=== PATIENT | male | born 1980 | race Asian ===

== ENCOUNTER → 2024-04-21 | Outpatient (CLI) | payer OTHER, SELFPAY ==
--- NOTE | 2024-04-21 13:00 | RAD_ITS ---
STUDY: X-RAY CHEST REASON FOR EXAM: Male, 43 years old. 10 day history of cough. TECHNIQUE: PA and lateral views of the chest. COMPARISON: None. FINDINGS: The lungs are clear and expanded. There is no demonstrated pleural abnormality. Normal size heart. Normal mediastinum and renzo. Normal visualized pulmonary arteries. Normal visualized aortic arch and descending thoracic aorta. Normal visualized thoracic spine. Normal visualized ribs, clavicles, and shoulders. There is no demonstrated abnormality of the visualized soft tissue structures of the upper abdomen. RAD/Chest PA and Lateral IMPRESSION: Normal x-ray examination of the chest. Electronically Signed: Ezequiel Faria MD at 14:46 EDT ,
== END | disposition home or self-care (01) ==
LOC: MTRAD 12:59
PROVIDERS: PCP Family Medicine; Referring Provider Family Medicine; Visit Provider Family Medicine
DX: R05.8 Other specified cough (principal)
CPT/HCPCS: 71046

== ENCOUNTER 2024-07-26 18:47 | Inpatient (IN) | payer OTHER, SELFPAY ==
[2024-07-26 18:47] VITALS: BP 156/95; PULSE 100; RESP 16; TEMP 36.9; O2SAT 95
--- NOTE | 2024-07-26 19:03 | CT_ITS ---
We are attempting to reach an attending provider to discuss findings. An addendum with communication details will be sent when the communication is complete. EXAM: CT ABDOMEN AND PELVIS WITH INTRAVENOUS CONTRAST CLINICAL INDICATION: abdominal pain -- TECHNIQUE: Helically acquired images were obtained of the abdomen and pelvis with intravenous contrast. This CT exam was performed using one or more of the following dose reduction techniques: automated exposure control, adjustment of the mA and/or kV according to patient size, and/or use of iterative reconstruction technique. CONTRAST: Oral and amp;amp; IV Gastrografin and amp;amp; 100mL Isovue-300 COMPARISON: No relevant prior studies available. FINDINGS: LOWER THORAX: There is minimal atelectasis in the lung bases. No cardiomegaly. No significant pericardial effusion. ABDOMEN: LIVER: There are low-density masses in the liver the largest measures 4.6 x 4.2 x 5.5 cm suspicious for metastatic disease. GALLBLADDER AND BILE DUCTS: Unremarkable. No calcified gallstones. No gallbladder distention or wall edema. No intra- or extrahepatic biliary ductal dilation. PANCREAS: Unremarkable. No focal cystic or solid mass. SPLEEN: There is dense fluid surrounding the spleen possibly representing hemorrhage. There is no obvious splenic laceration identified. Delayed images show normal tracer contrast from both kidneys. ADRENALS: Unremarkable. No nodules. KIDNEYS AND URETERS: Unremarkable. Normal renal size and position. No hydronephrosis. STOMACH AND BOWEL: Unremarkable. No stomach or bowel distention. No focal inflammatory change. PELVIS: APPENDIX: No evidence of acute appendicitis. BLADDER: Unremarkable. REPRODUCTIVE: Unremarkable as visualized. No mass. ABDOMEN and PELVIS: INTRAPERITONEAL SPACE: Unremarkable. No ascites or other fluid collection. No free air. BONES/JOINTS: Unremarkable. No suspicious lytic or blastic abnormality. SOFT TISSUES: Unremarkable. No discrete abdominal or pelvic wall hernia. VASCULATURE: Unremarkable. Abdominal aorta is non-dilated. LYMPH NODES: Unremarkable. No enlarged lymph nodes. CT/Abdomen/Pelvis WITH Contrast IMPRESSION: 1. Low-density mass in the liver suspicious for metastatic disease or possibly primary hepatic malignancy. 2. Hyperdense fluid surrounding the spleen possibly representing hemorrhage. There is no evidence of splenic laceration.. Electronically Signed: Linwood Montemayor MD at 21:47 EST ,
--- NOTE | 2024-07-26 19:04 | ED.VIS.GI ---
HPI HPI - GI History of Present Illness Chief Complaint: Abd Pain Detail of Chief Complaint: Abdominal pain Informant: patient Narrative Narrative: Patient presents to the emergency department complaint of abdominal pain that started around 5 PM 3 days ago. Patient has had continuous pain describes as right upper abdomen that is worse with movement and breathing. He said no nausea or vomiting. He denies fever. He tells me he can eat normally. Denies any blood in his stool or black tarry stool. He has never had pain like this before. He said no prior abdominal surgeries. He denies any chest pain. [facility] Medical History (Updated 07/27/24 @ 00:[address] Melissa Heath, DO) Hypertension Allergy/AdvReac Type Severity Reaction Status Date / Time No Known Allergies Allergy Verified 07/26/24 20:08 Social History Smoking Status: Unknown if ever smoked ROS ROS ED Review of Systems ROS Unobtainable: other Constitutional Constitutional ED: Reports lethargy; Denies chills, fever(s), sweats or weight loss Eyes Eyes: Denies blurry vision, change in vision or diplopia ENT ENT ED: Denies rhinorrhea or sore throat Cardiovascular Cardiovascular: Denies chest pain, orthopnea or racing heartbeat Respiratory/Chest Respiratory/Chest: Denies cough, dyspnea, dyspnea on exertion, orthopnea or sputum Gastrointestinal Gastrointestinal: Reports abdominal pain; Denies diarrhea, nausea or vomiting Genitourinary Genitourinary ED: Denies dysuria, hematuria or urinary frequency Musculoskeletal Musculoskeletal: Denies arthralgias, back pain, myalgias or neck pain Integumentary Denies abscess, Abrasions or rash Neurologic Neurologic: Denies headache(s) or weakness Psychiatric Psychiatric: Denies anxiety, depression or suicidal thoughts Endocrine Endocrinology: Denies polydipsia, polyphagia or polyuria Hematologic/Lymphatic Hematologic/Lymphatic: Denies easy bleeding, easy bruising or lymphadenopathy Allergic/Immunologic Allergic/Immunologic ED: Denies mouth swelling, tongue swelling or urticaria EXAM Physical Exam Const Vital Signs: 07/26/24 18:47 07/26/24 20:47 07/26/24 22:00 Temperature 98.5 F Temperature Source Temporal Pulse Rate 100 94 92 Respiratory Rate 16 16 16 Blood Pressure 156/95 H 188/100 H 162/96 H Blood Pressure Mean 115 129 118 Pulse Ox 95 98 96 Oxygen Delivery Method Room Air Room Air Room Air Positive well nourished and well developed General Appearance ED: well developed and NAD HEENT Reports TM's clear and moist mucous membranes normocephalic and atraumatic; Negative for trauma or tenderness Tympanic Membrane ED: Yes TM's clear Eyes PERRL and EOMs intact bilaterally General Eye ED: Negative for pale conjunctiva or scleral icterus Neck no lymphadenopathy, supple and no JVD General: Negative for tenderness Chest Wall inspection of chest normal and palpation of chest normal Chest: Negative for tenderness Resp normal respiratory effort and clear to auscultation bilaterally Effort and Inspection: Negative for respiratory distress or pain with movement Auscultation: Negative for rhonchi, wheezes or diminished lung sounds Cardio regular rate, regular rhythm, S1 normal heart sound, S2 normal heart sound and no murmurs Peripheral Pulses: pulses 2+ throughout GI normal to inspection, nondistended, normoactive bowel sounds, soft to palpation, non-distended and no masses GI Narrative: Tenderness palpation over the right upper quadrant with some guarding. He also has tenderness palpation over right lower quadrant and a positive Rovsing's on the left. No masses palpated. Back/Spine no CVA tenderness and no thoracic nor lumbar tenderness Extremity normal to inspection General Extremety ED: Negative for edema General Extremity: Negative for edema Neuro oriented x3, CN's II-XII intact bilaterally, no sensory deficits noted and gait normal Sensorium / Orientation: awake, alert, oriented to person, oriented to place and oriented to time Motor Exam: strength 5/5 throughout and strength abnormal Psych mental status grossly normal Skin no rashes or lesions noted and no wounds MDM MDM MDM Narrative Medical decision making narrative: Patient with abdominal pain for 4 days right upper quadrant worse with movement. Food does not affect the pain. IV line established. CBC with differential obtained showing a 5.5 with hemoglobin 13.2 and platelet count of 217. Chemistries unremarkable. LFTs normal. Lactate normal at 1.0. Urinalysis normal. Lipase normal at 50. CT scan of the abdomen and pelvis shows a large liver mass and dense fluid around the spleen which could possibly be hemorrhage. Clinically looks well. Discussed case with our general surgeon who recommended transfer to tertiary care where they would have hepatology. We attempted transfer to multiple hospitals in the area including [facility] however there are no beds available. We contacted [facility] and they will not take him as he has [place] [employer] insurance. We contacted [facility] however they do not have hepatology. Contacted [facility] and had not heard back. Care of patient will be turned over to evening physician awaiting transfer to tertiary care center for definitive care. Patient hemodynamically stable. Lab Data Attestation: I reviewed the patient's lab results. Labs: Laboratory Results - last 24 hr 07/26/24 07/26/24 07/26/24 19:00 19:50 20:55 WBC 5.5 RBC 4.69 Hgb 13.2 Hct 40.3 MCV 85.9 MCH 28.1 MCHC 32.8 RDW Std Deviation 40.2 RDW Coeff of Viviana 13.0 Plt Count 217 MPV 10.0 Immature Gran % (Auto) 0.400 Neut % (Auto) 57.5 Lymph % (Auto) 29.3 [place] % (Auto) 10.5 H Eos % (Auto) 1.6 Baso % (Auto) 0.7 Absolute Neuts (auto) 3.2 Absolute Lymphs (auto) 1.61 Nucleated RBC % 0 Sodium 140 Potassium 3.3 L Chloride 105 Carbon Dioxide 31.0 Anion Gap 5 BUN 14 Creatinine 0.99 Est GFR (MDRD) Af Amer 105 Est GFR (MDRD) Non-Af 87 BUN/Creatinine Ratio 14.1 Glucose 108 H Lactic Acid 1.0 Calcium 8.9 Total Bilirubin 1.10 H AST 20 ALT 21 Alkaline Phosphatase 63 Total Protein 8.1 Albumin 3.7 Globulin 4.4 H Albumin/Globulin Ratio 0.8 L Lipase 50 Urine Color Straw Urine Clarity Clear Urine pH 7.0 Ur Specific [place] 1.010 Urine Protein Negative Urine Glucose (UA) Normal Urine Ketones Negative Urine Occult Blood Negative Urine Nitrite Negative Urine Bilirubin Negative Urine Urobilinogen Normal Ur Leukocyte Esterase Negative Urine RBC 0 SEEN Urine WBC 0 SEEN Ur Squamous Epith Cells 0 SEEN Urine Bacteria 0 SEEN Urine Mucus 0 SEEN Radiography Diagnostic Testing: Clinical Impression(s) from Imaging Studies Abdomen/Pelvis CT 07/26/24 19:03 IMPRESSION: 1. Low-density mass in the liver suspicious for metastatic disease or possibly primary hepatic malignancy. 2. Hyperdense fluid surrounding the spleen possibly representing hemorrhage. There is no evidence of splenic laceration.. Electronically Signed: Linwood Montemayor MD at 21:47 EST , ADDENDUM: 07/26/242202 IMPRESSION: 1. Low-density mass in the liver suspicious for metastatic disease or possibly primary hepatic malignancy. 2. Hyperdense fluid surrounding the spleen possibly representing hemorrhage. There is no evidence of splenic laceration.. N.B. : The above Results were Read Back by Linwood Montemayor MD to Melissa Heath DO, and understanding confirmed on 07/26/2024 21:57:03 (ET). Electronically Signed: Linwood Montemayor MD at 21:47 EST , Discharge Plan Triage Chief Complaint: Abd Pain ED Provider: Melissa Heath Dx/Rx/DC Orders Clinical Impression: Liver mass, Abdominal pain, Hypertension Primary Care Provider: Ana Farias Referrals: Ana Farias MD [Primary Care Provider] - Print Language: Mohawk Disposition Disposition: DC/Tx to Another Type of HCF
[2024-07-26 19:34] LABS: Absolute Lymphocyte Count 1.61 X10^3/uL (0.83-4.51); Absolute Neutrophil Count 3.2 X10^3/uL (2.0-7.7); Basophil# 0.04 X10^3/uL; Basophil% 0.7 % (0-1); Eosinophil# 0.09 X10^3/uL; Eosinophils% 1.6 % (0-5); Hematocrit 40.3 % (40-54); Hemoglobin 13.2 g/dL (13.0-16.5); Lymphocyte # 1.61 X10^3/ul (0.83-4.51); Lymphocyte % 29.3 % (19-41); Mean Corp Hgb Conc 32.8 g/dL (32-36); Mean Corpuscular Hgb 28.1 pg (27.0-32.0); Mean Corpuscular Volume 85.9 fL (80-94); Monocyte# 0.58 X10^3/uL; Monocyte% 10.5 % (0-10); NRBC Flagged by Analyzer 0 % (0-5); Neutrophil # 3.16 X10^3/uL (2.7-7.7); Neutrophil % 57.5 % (47-70); Platelet Count 217 K/mm3 (150-450); RBC Distribution Width SD 40.2 fl (35.1-43.9); Red Blood Count 4.69 M/mm3 (4.6-6.2); White Blood Count 5.5 K/mm3 (4.4-11.0)
[2024-07-26 19:40] LABS: ALB/GLOB Ratio 0.8 RATIO (0.9-2.4); AST(SGOT) 20 U/L (15-37); Alanine Aminotransfer ALT/SGPT 21 U/L (16-61); Albumin, Serum 3.7 g/dL (3.2-5.0); Alkaline Phosphatase 63 U/L (45-117); Anion Gap 5 (5-15); BUN 14 mg/dL (7-18); BUN/Creat Ratio 14.1 RATIO (10-20); Calcium,Total 8.9 mg/dL (8.5-10.1); Chloride 105 mmol/L (98-107); Creatinine, Serum 0.99 mg/dL (0.70-1.30); EST Glomerular Filtration Rate 87 mL/min (>60); Est Glom Filt Rate - Afr Amer 105 mL/min (>60); Globulin 4.4 g/dL (2.2-4.2); Glucose 108 mg/dL (74-106); Lipase 50 U/L (13-75); Potassium 3.3 mmol/L (3.5-5.1); Protein, Total 8.1 g/dL (6.4-8.2); Sodium Level 140 mmol/L (136-145)
[2024-07-26] MEDS: 0.9% Normal Saline (1000mL) 1,000 ML 999 ML IV (19:54)
[2024-07-26 20:02] LABS: Bacteria 0 SEEN /hpf (None Seen); Mucous, Urine 0 SEEN /hpf (<or=2+); Red Blood Cells-Urine 0 SEEN /hpf (0-5); Squamous Epithelial Cells - UA 0 SEEN /hpf (0-5); White Blood Cells 0 SEEN /hpf (0-5)
[2024-07-26 20:03] LABS: Color, Urine Straw (Yellow); Glucose, Dipstick Normal (Normal); Ketone-Dipstick Negative (Negative); Leukocyte Esterase-Dipstick Negative /ul (Negative); Nitrite-Dipstick Negative (Negative); Occult Blood-Urine Negative /ul (Negative); Protein-Dipstick Negative (Negative); Urine Bilirubin Dipstick Negative (Negative); Urine Clarity Clear (Clear); Urine Urobilinogen Normal (Normal)
[2024-07-26 20:47] VITALS: BP 188/100; PULSE 94; RESP 16; O2SAT 98
[2024-07-26 22:00] VITALS: BP 162/96; PULSE 92; RESP 16; O2SAT 96
--- NOTE | 2024-07-26 22:20 | RAD_ITS ---
EXAM: XR CHEST, 1 VIEW CLINICAL INDICATION: upper abdomen pain TECHNIQUE: Frontal view of the chest. COMPARISON: 04/21/2024 FINDINGS: LUNGS AND PLEURAL SPACES: Unremarkable. No consolidation or edema. No pneumothorax. No effusion. HEART: Unremarkable. Cardiac silhouette not enlarged. MEDIASTINUM: Central airways and mediastinal contour are unremarkable. BONES/JOINTS: Unremarkable. No acute fracture. SOFT TISSUES: Unremarkable. RAD/Chest 1 View (Portable) IMPRESSION: No radiographic evidence of acute cardiopulmonary disease. Electronically Signed: Linwood Montemayor MD at 22:51 EST ,
[2024-07-26] MEDS: Ondansetron 4 MG/2 ML Vial IV (22:35)
[2024-07-26] MEDS: HYDROmorphone 1 MG/ML Syringe IV (22:38)
[2024-07-26 23:52] VITALS: BP 187/99; PULSE 77; RESP 11; O2SAT 96
[2024-07-26 23:54] VITALS: BMI 32.1
[2024-07-27] VITALS (11 sets, daily range): BP systolic 136–175; BP diastolic 84–99; PULSE 79–88; RESP 16–18; TEMP 36.5–36.9; O2SAT 96–99; BMI 32.1
--- NOTE | 2024-07-27 13:34 | HP.PCM.HOS_ITS ---
HPI - General General Date of Admission: 07/27/24 Date of Service: 07/27/24 Chief Complaint: Abdominal pain HPI Narrative ANNELIESE LUTZ, is a 43 M with past medical history significant for hypertension currently not taking any medication who presented with abdominal pain. Patient symptoms started 3 days prior to his admission. Pain was located in the right upper quadrant. No associated pain with any nausea no vomiting. Denied any diarrhea. In view of the persistent nature of his symptoms presented to the emergency department. Imaging studies obtained did show Low-density mass in the liver suspicious for metastatic disease or possibly primary hepatic malignancy. Hyperdense fluid surrounding the spleen possibly representing hemorrhage. There is no evidence of splenic laceration.. Based on the finding arrangements were made for patient to be transferred to [facility] for subsequent evaluation and treatment [facility] Medical History Hypertension Home Medications ?Medication ?Instructions ?Recorded ?Last Taken ?Type NK 07/27/24 Unknown History Allergy/AdvReac Type Severity Reaction Status Date / Time No Known Allergies Allergy Verified 07/26/24 20:08 Social History Smoking Status: Unknown if ever smoked ROS ROS Narrative GENERAL: denies fever, chills, night sweats, weight loss, anorexia HEENT: denies headache, sinus congestion, or drainage, dysphagia RESPIRATORY: denies cough, sputum production, shortness of breath, CARDIAC: denies chest pain, palpitations, orthopnea, PND GASTROINTESTINAL: abdominal pain, denies nausea, vomiting, melena, GENITOURINARY: denies dysuria, urgency, frequency, heamaturia EXTREMITY: denies swelling MUSCULOSKELETAL: denies current joint pain or tenderness NEUROLOGIC: denies focal numbness, weakness, tingling HEMATOLOGIC: denies easy bruising and/or hemorrhage INTEGUMENT: denies rashes PSYCHIATRIC: denies suicidal or homicidal ideation Vital Signs Vital Signs Vital Signs: 07/26/24 18:47 07/26/24 20:47 07/26/24 22:00 Temperature 98.5 F Temperature Source Temporal Pulse Rate 100 94 92 Respiratory Rate 16 16 16 Blood Pressure 156/95 H 188/100 H 162/96 H Blood Pressure Mean 115 129 118 Pulse Ox 95 98 96 Oxygen Delivery Method Room Air Room Air Room Air 07/26/24 23:52 07/27/24 00:00 07/27/24 02:00 Temperature Temperature Source Pulse Rate 77 88 Respiratory Rate 11 L 18 Blood Pressure 187/99 H 160/94 H 175/97 H Blood Pressure Mean 128 116 123 Pulse Ox 96 98 97 Oxygen Delivery Method Room Air Room Air Room Air 07/27/24 04:00 07/27/24 06:20 07/27/24 08:00 Temperature Temperature Source Pulse Rate 80 79 Respiratory Rate 16 16 16 Blood Pressure 148/84 H 158/93 H 154/95 H Blood Pressure Mean 105 114 114 Pulse Ox 96 96 99 Oxygen Delivery Method Room Air Room Air Room Air 07/27/24 10:00 07/27/24 13:07 Temperature 98.1 F Temperature Source Oral Pulse Rate 84 88 Respiratory Rate 18 16 Blood Pressure 165/86 H 150/90 H Blood Pressure Mean 112 110 Pulse Ox 99 97 Oxygen Delivery Method Room Air Weight Weight: 95.9 kg Body Mass Index (BMI) 32.1 Physical Exam Narrative GENERAL: cooperative HEENT: Atraumatic; normocephalic EYES; Anicteric, Normal Conjunctiva NECK; supple, normal thyroid, RESPIRATORY: Diminished to auscultation CARDIOVASCULAR: Regular S1 S2, GI: soft, normoactive bowel sounds, : No Renal angle tenderness; EXTREMITIES: No edema, no clubbing, MUSCULOSKELETAL: no muscle wasting NEURO: Awake; no lateralizing signs. SKIN: No Rash PSYCH; Flat affect Results Lab / Micro Data 07/26/24 19:00 07/26/24 19:00 Labs: Laboratory Results - last 24 hr 07/26/24 19:00: WBC 5.5, RBC 4.69, Hgb 13.2, Hct 40.3, MCV 85.9, MCH 28.1, MCHC 32.8, RDW Std Deviation 40.2, RDW Coeff of Viviana 13.0, Plt Count 217, MPV 10.0, Immature Gran % (Auto) 0.400, Neut % (Auto) 57.5, Lymph % (Auto) 29.3, [place] % (Auto) 10.5 H, Eos % (Auto) 1.6, Baso % (Auto) 0.7, Absolute Neuts (auto) 3.2, Absolute Lymphs (auto) 1.61, Nucleated RBC % 0, Sodium 140, Potassium 3.3 L, Chloride 105, Carbon Dioxide 31.0, Anion Gap 5, BUN 14, Creatinine 0.99, Est GFR (MDRD) Af Amer 105, Est GFR (MDRD) Non-Af 87, BUN/Creatinine Ratio 14.1, Glucose 108 H, Calcium 8.9, Total Bilirubin 1.10 H, AST 20, ALT 21, Alkaline Phosphatase 63, Total Protein 8.1, Albumin 3.7, Globulin 4.4 H, Albumin/Globulin Ratio 0.8 L , Lipase 50 07/26/24 19:50: Urine Color Straw, Urine Clarity Clear, Urine pH 7.0, Ur Specific [place] 1.010, Urine Protein Negative, Urine Glucose (UA) Normal, Urine Ketones Negative, Urine Occult Blood Negative, Urine Nitrite Negative, Urine Bilirubin Negative, Urine Urobilinogen Normal, Ur Leukocyte Esterase Negative, Urine RBC 0 SEEN, Urine WBC 0 SEEN, Ur Squamous Epith Cells 0 SEEN, Urine Bacteria 0 SEEN, Urine Mucus 0 SEEN 07/26/24 20:55: Lactic Acid 1.0 Imaging Radiology Impression Abdomen/Pelvis CT 07/26/24 19:03 IMPRESSION: 1. Low-density mass in the liver suspicious for metastatic disease or possibly primary hepatic malignancy. 2. Hyperdense fluid surrounding the spleen possibly representing hemorrhage. There is no evidence of splenic laceration.. Electronically Signed: Linwood Montemayor MD at 21:47 EST , ADDENDUM: 07/26/24 2203 IMPRESSION: 1. Low-density mass in the liver suspicious for metastatic disease or possibly primary hepatic malignancy. 2. Hyperdense fluid surrounding the spleen possibly representing hemorrhage. There is no evidence of splenic laceration.. N.B. : The above Results were Read Back by Linwood Montemayor MD to Melissa Heath DO, and understanding confirmed on 07/26/2024 21:57:03 (ET). Electronically Signed: Linwood Montemayor MD at 21:47 EST , Chest X-Ray 07/26/24 22:20 IMPRESSION: No radiographic evidence of acute cardiopulmonary disease. Electronically Signed: Linwood Montemayor MD at 22:51 EST , Assessment & Plan Assessment/Plan (1) Abdominal pain: (2) Liver mass: (3) Hypertension: PLAN: Plan Patient is a 43-year-old gentleman who presented with abdominal pain 1. Abdominal pain - Imaging studies obtained did show Low-density mass in the liver suspicious for metastatic disease or possibly primary hepatic malignancy. Hyperdense fluid surrounding the spleen possibly representing hemorrhage. There is no evidence of splenic laceration.. Based on the finding arrangements were made for patient to be transferred to [facility] for subsequent evaluation and treatment. With patient having spent more than 18 hours in the emergency department decision was made to admit patient to [facility] pending transfer 2. Essential hypertension ? Patient has apparently not been compliant with his antihypertensive regimen 3. DVT prophylaxis ? Low risk moreover contraindicated in view of the splenic hemorrhage Charges/Coding Visit Charges Inpatient E&M: 65101 Init Hosp L2
[2024-07-27] MEDS: KCL 20MEQ in D5.45NS 20 MEQ/1,000 ML IV.SOLN. 100 MEQ IV (18:39)
[2024-07-27 20:06] LABS: Absolute Lymphocyte Count 1.78 X10^3/uL (0.83-4.51); Absolute Neutrophil Count 2.7 X10^3/uL (2.0-7.7); Basophil# 0.05 X10^3/uL; Basophil% 0.9 % (0-1); Eosinophil# 0.24 X10^3/uL; Eosinophils% 4.4 % (0-5); Hematocrit 35.9 % (40-54); Lymphocyte # 1.78 X10^3/ul (0.83-4.51); Lymphocyte % 32.5 % (19-41); Mean Corp Hgb Conc 33.4 g/dL (32-36); Mean Corpuscular Hgb 28.6 pg (27.0-32.0); Mean Corpuscular Volume 85.7 fL (80-94); Mean Platelet Vol. 9.9 fl (6.2-12.0); Monocyte% 12.8 % (0-10); NRBC Flagged by Analyzer 0 % (0-5); Neutrophil # 2.69 X10^3/uL (2.7-7.7); Platelet Count 221 K/mm3 (150-450); RBC Distribution Width CV 12.9 % (11.6-14.6); RBC Distribution Width SD 39.8 fl (35.1-43.9); Red Blood Count 4.19 M/mm3 (4.6-6.2); White Blood Count 5.5 K/mm3 (4.4-11.0)
[2024-07-27 20:20] LABS: ALB/GLOB Ratio 0.9 RATIO (0.9-2.4); AST(SGOT) 21 U/L (15-37); Alanine Aminotransfer ALT/SGPT 25 U/L (16-61); Albumin, Serum 3.3 g/dL (3.2-5.0); Alkaline Phosphatase 59 U/L (45-117); Anion Gap 5 (5-15); BUN 14 mg/dL (7-18); BUN/Creat Ratio 13.6 RATIO (10-20); Calcium,Total 8.7 mg/dL (8.5-10.1); Chloride 106 mmol/L (98-107); Creatinine, Serum 1.03 mg/dL (0.70-1.30); EST Glomerular Filtration Rate 83 mL/min (>60); Est Glom Filt Rate - Afr Amer 100 mL/min (>60); Estimated Creatinine Clearance 98.48 ml/min; Globulin 3.8 g/dL (2.2-4.2); Glucose 131 mg/dL (74-106); Magnesium 2.1 mg/dL (1.6-2.6); Phosphorus 3.2 mg/dL (2.5-4.9); Potassium 3.3 mmol/L (3.5-5.1); Protein, Total 7.1 g/dL (6.4-8.2); Sodium Level 140 mmol/L (136-145)
[2024-07-28 04:02] VITALS: BP 140/86; PULSE 85; RESP 16; TEMP 37; O2SAT 97
[2024-07-28] MEDS: KCL 20MEQ in D5.45NS 20 MEQ/1,000 ML IV.SOLN. 100 MEQ IV ×2 (04:13→15:13)
--- NOTE | 2024-07-28 05:29 | NURSING ---
Chrissy from [facility] called for update on pt; update given including set of recent vitals.
[2024-07-28 07:15] LABS: Absolute Lymphocyte Count 1.85 X10^3/uL (0.83-4.51); Absolute Neutrophil Count 2.2 X10^3/uL (2.0-7.7); Basophil# 0.05 X10^3/uL; Eosinophil# 0.29 X10^3/uL; Eosinophils% 5.9 % (0-5); Hematocrit 38.9 % (40-54); Hemoglobin 12.9 g/dL (13.0-16.5); Lymphocyte # 1.85 X10^3/ul (0.83-4.51); Lymphocyte % 37.4 % (19-41); Mean Corp Hgb Conc 33.2 g/dL (32-36); Mean Corpuscular Hgb 28.2 pg (27.0-32.0); Mean Corpuscular Volume 85.1 fL (80-94); Mean Platelet Vol. 9.6 fl (6.2-12.0); Monocyte# 0.53 X10^3/uL; Monocyte% 10.7 % (0-10); NRBC Flagged by Analyzer 0 % (0-5); Neutrophil # 2.21 X10^3/uL (2.7-7.7); Neutrophil % 44.8 % (47-70); Platelet Count 228 K/mm3 (150-450); RBC Distribution Width CV 12.8 % (11.6-14.6); RBC Distribution Width SD 39.2 fl (35.1-43.9); Red Blood Count 4.57 M/mm3 (4.6-6.2); White Blood Count 4.9 K/mm3 (4.4-11.0)
[2024-07-28 07:24] VITALS: O2SAT 96
--- NOTE | 2024-07-28 07:31 | PN.HOSP_ITS ---
Reason for Visit Reason for Visit: Diagnoses Essential (primary) hypertension (07/27/24) Unspecified abdominal pain (07/27/24) Hepatomegaly, not elsewhere classified (07/27/24) Subjective Subjective Admitted with abdominal pain found to have liver lesions as well as splenic hemorrhage awaiting transfer to a tertiary care center. Diagnostic data reviewed significant for hypokalemia which is being corrected per protocol Objective Data Objective Data Vital Signs: Vital Signs Temp Pulse Resp BP Pulse Ox O2 Del Method 98.6 F 85 16 140/86 H 97 Room Air 07/28/24 04:02 07/28/24 04:02 07/28/24 04:02 07/28/24 04:02 07/28/24 04:02 07/28/24 04:02 Oxygen Delivery Method Room Air Weight: 93.043 kg Body Mass Index (BMI) 32.1 Intake & Output: Intake and Output for Last 24 Hours 07/26/24 07/27/24 07/28/24 23:59 23:59 23:59 Intake Total 1000 / 1000 1955. / 1955. Balance 1000 / 1000 / Lab / Micro Data 07/28/24 06:43 07/28/24 06:43 Labs: Laboratory Results - last 24 hr 07/27/24 19:21: WBC 5.5, RBC 4.19 L, Hgb 12.0 L, Hct 35.9 L, MCV 85.7, MCH 28.6, MCHC 33.4, RDW Std Deviation 39.8, RDW Coeff of Viviana 12.9, Plt Count 221, MPV 9.9, Immature Gran % (Auto) 0.400, Neut % (Auto) 49.0, Lymph % (Auto) 32.5, [place] % (Auto) 12.8 H, Eos % (Auto) 4.4, Baso % (Auto) 0.9, Absolute Neuts (auto) 2.7, Absolute Lymphs (auto) 1.78, Nucleated RBC % 0, Sodium 140, Potassium 3.3 L, Chloride 106, Carbon Dioxide 30.0, Anion Gap 5, BUN 14, Creatinine 1.03, Estim Creat Clear Calc 98.48, Est GFR (MDRD) Af Amer 100, Est GFR (MDRD) Non-Af 83, BUN/Creatinine Ratio 13.6, Glucose 131 H, Calcium 8.7, Phosphorus 3.2, Magnesium 2.1, Total Bilirubin 1.40 H, AST 21, ALT 25, Alkaline Phosphatase 59, Total Protein 7.1, Albumin 3.3, Globulin 3.8, Albumin/Globulin Ratio 0.9 07/28/24 06:43: WBC 4.9, RBC 4.57 L, Hgb 12.9 L, Hct 38.9 L, MCV 85.1, MCH 28.2, MCHC 33.2, RDW Std Deviation 39.2, RDW Coeff of Viviana 12.8, Plt Count 228, MPV 9.6, Immature Gran % (Auto) 0.200, Neut % (Auto) 44.8 L, Lymph % (Auto) 37.4, M maria ines % (Auto) 10.7 H, Eos % (Auto) 5.9 H, Baso % (Auto) 1.0, Absolute Neuts (auto) 2.2, Absolute Lymphs (auto) 1.85, Nucleated RBC % 0 Physical Exam Narrative GENERAL: cooperative HEENT: Atraumatic; normocephalic EYES; Anicteric, Normal Conjunctiva NECK; supple, normal thyroid, RESPIRATORY: Diminished to auscultation CARDIOVASCULAR: Regular S1 S2, GI: soft, normoactive bowel sounds, : No Renal angle tenderness; EXTREMITIES: No edema, no clubbing, MUSCULOSKELETAL: no muscle wasting NEURO: Awake; no lateralizing signs. SKIN: No Rash PSYCH; Flat affect Assessment & Plan Assessment/Plan (1) Abdominal pain: (2) Liver mass: (3) Hypertension: PLAN: Plan Patient is a 43-year-old gentleman who presented with abdominal pain 1. Abdominal pain - Imaging studies obtained did show Low-density mass in the liver suspicious for metastatic disease or possibly primary hepatic malignancy. Hyperdense fluid surrounding the spleen possibly representing hemorrhage. There is no evidence of splenic laceration.. Based on the finding arrangements were made for patient to be transferred to [facility] for subsequent evaluation and treatment. With patient having spent more than 18 hours in the emergency department decision was made to admit patient to [facility] floor pending transfer 2. Essential hypertension ? Patient has apparently not been compliant with his antihypertensive regimen 3. Hypokalemia -Corrected per protocol 4. DVT prophylaxis ? Low risk moreover contraindicated in view of the splenic hemorrhage Time spent in the patient's overall evaluation,decision-making process, review of diagnostic data, adjustment of management, discussion with other providers, nursing nursing and ancillary staff involved in patient's care documentation, 36 Minutes Charges/Coding Visit Charges Inpatient E&M: 76954 Subs Hosp L2
[2024-07-28 07:38] LABS: Anion Gap 3 (5-15); BUN 11 mg/dL (7-18); BUN/Creat Ratio 12.4 RATIO (10-20); Calcium,Total 8.6 mg/dL (8.5-10.1); Chloride 108 mmol/L (98-107); Creatinine, Serum 0.89 mg/dL (0.70-1.30); EST Glomerular Filtration Rate 98 mL/min (>60); Est Glom Filt Rate - Afr Amer 119 mL/min (>60); Estimated Creatinine Clearance 113.97 ml/min; Glucose 117 mg/dL (74-106); Potassium 3.4 mmol/L (3.5-5.1); Sodium Level 140 mmol/L (136-145)
--- NOTE | 2024-07-28 08:16 | NURSING ---
I spoke to Shala at [facility] transfer line she stated the pt is accepted however they do not have a bed at this time.
[2024-07-28 08:31] VITALS: BP 163/98; PULSE 81; RESP 16; TEMP 36.6; O2SAT 98
--- NOTE | 2024-07-28 08:35 | NURSING ---
I spoke to [facility] transfer line and they stated the pt has been accepted however they do not have a bed at this time.
[2024-07-28] MEDS: Acetaminophen 325 MG Tablet 650 MG PO (08:43)
[2024-07-28] MEDS: Potassium Chloride Oral Tablet 20 MEQ PO ×2 (08:43→16:54)
[2024-07-28] MEDS: FLU VACC 2024-25(6MOS UP)/PF 45 MCG/0.5 ML SYRINGE IM (12:13)
[2024-07-28 16:52] VITALS: BP 154/99; PULSE 79; RESP 16; TEMP 36.9; O2SAT 98
[2024-07-28 20:49] VITALS: BP 148/88; PULSE 83; RESP 15; TEMP 36.8; O2SAT 97
[2024-07-28 22:00] VITALS: RESP 15
[2024-07-29 03:00] VITALS: BP 154/80; PULSE 85; RESP 15; TEMP 37; O2SAT 96
[2024-07-29 06:44] LABS: Absolute Lymphocyte Count 1.79 X10^3/uL (0.83-4.51); Absolute Neutrophil Count 3.3 X10^3/uL (2.0-7.7); Basophil# 0.05 X10^3/uL; Basophil% 0.8 % (0-1); Eosinophil# 0.35 X10^3/uL; Eosinophils% 5.7 % (0-5); Hematocrit 37.7 % (40-54); Hemoglobin 12.5 g/dL (13.0-16.5); Lymphocyte # 1.79 X10^3/ul (0.83-4.51); Lymphocyte % 29.2 % (19-41); Mean Corp Hgb Conc 33.2 g/dL (32-36); Mean Corpuscular Hgb 28.3 pg (27.0-32.0); Mean Corpuscular Volume 85.3 fL (80-94); Mean Platelet Vol. 9.6 fl (6.2-12.0); Monocyte# 0.58 X10^3/uL; Monocyte% 9.5 % (0-10); NRBC Flagged by Analyzer 0 % (0-5); Neutrophil # 3.34 X10^3/uL (2.7-7.7); Neutrophil % 54.5 % (47-70); Platelet Count 234 K/mm3 (150-450); RBC Distribution Width CV 12.7 % (11.6-14.6); RBC Distribution Width SD 39.3 fl (35.1-43.9); Red Blood Count 4.42 M/mm3 (4.6-6.2); White Blood Count 6.1 K/mm3 (4.4-11.0)
[2024-07-29 07:09] LABS: Anion Gap 6 (5-15); BUN 12 mg/dL (7-18); BUN/Creat Ratio 12.7 RATIO (10-20); Chloride 108 mmol/L (98-107); Creatinine, Serum 0.94 mg/dL (0.70-1.30); EST Glomerular Filtration Rate 92 mL/min (>60); Est Glom Filt Rate - Afr Amer 111 mL/min (>60); Estimated Creatinine Clearance 107.91 ml/min; Glucose 109 mg/dL (74-106); Potassium 3.3 mmol/L (3.5-5.1); Sodium Level 140 mmol/L (136-145)
[2024-07-29 09:53] VITALS: BP 163/99; PULSE 86; RESP 18; TEMP 37.1; O2SAT 97
[2024-07-29] MEDS: Potassium Chloride Oral Tablet 20 MEQ PO ×2 (09:57→17:32)
--- NOTE | 2024-07-29 13:33 | PCM.PN.HOSP ---
Reason for Visit Reason for Visit: Diagnoses Essential (primary) hypertension (07/27/24) Unspecified abdominal pain (07/27/24) Hepatomegaly, not elsewhere classified (07/27/24) Objective Data Objective Data Vital Signs: Vital Signs Temp Pulse Resp BP Pulse Ox O2 Del Method 98.7 F 86 18 163/99 H 97 Room Air 07/29/24 09:53 07/29/24 09:53 07/29/24 09:53 07/29/24 09:53 07/29/24 09:53 07/29/24 09:53 Oxygen Delivery Method Room Air Weight: 93.043 kg Body Mass Index (BMI) 32.1 Intake & Output: Intake and Output for Last 24 Hours 07/27/24 07/28/24 07/29/24 23:59 23:59 23:59 Intake Total 3906.67 / 3906.67 1000 / 1000 Balance 3906.67 / 3906.67 1000 / 1000 Lab / Micro Data 07/29/24 06:00 07/29/24 06:00 Labs: Laboratory Results - last 24 hr 07/29/24 06:00: WBC 6.1, RBC 4.42 L, Hgb 12.5 L, Hct 37.7 L, MCV 85.3, MCH 28.3, MCHC 33.2, RDW Std Deviation 39.3, RDW Coeff of Viviana 12.7, Plt Count 234, MPV 9.6, Immature Gran % (Auto) 0.300, Neut % (Auto) 54.5, Lymph % (Auto) 29.2, [place] % (Auto) 9.5, Eos % (Auto) 5.7 H, Baso % (Auto) 0.8, Absolute Neuts (auto) 3.3, Absolute Lymphs (auto) 1.79, Nucleated RBC % 0, Sodium 140, Potassium 3.3 L, Chloride 108 H, Carbon Dioxide 27.0, Anion Gap 6, BUN 12, Creatinine 0.94, Estim Creat Clear Calc 107.91, Est GFR (MDRD) Af Amer 111, Est GFR (MDRD) Non-Af 92, BUN/Creatinine Ratio 12.7, Glucose 109 H, Calcium 9.0
[2024-07-29 14:00] VITALS: BP 137/89; PULSE 88; RESP 18; TEMP 36.8; O2SAT 98
--- NOTE | 2024-07-29 18:07 | DCINST_ITS ---
Discharge Instructions Diet Discharge Diet: No restrictions DC O2, CPAP, BIPAP needs Additional Home O2 Discharge instructions: No Dressing / Incision Discharge Activity: No Restrictions Follow Up Care Test Results: Test results from this visit will be discussed in further detail at your follow- up appointment, if applicable. Discharge Plan Admission Admit Date/Time: 07/27/24 13:35 Primary Reason for Your Visit: abdominal pain Attending Provider: Den Mcfarland Primary Care Provider: Ana Farias Consulting Providers: Angel Salazar Discharge Orders/Prescriptions Prescriptions: No Action NK Referrals / Follow Up: Ana Farias MD [Primary Care Provider] - Disposition Disposition (needs filled in before D/C Order can be placed): Acute Care Hospital
--- NOTE | 2024-07-29 18:07 | PCM.DC.SUM ---
Providers Date of Admission: 07/27/24 Date of Discharge: 07/29/24 Primary Care Physician: Ana Farias MD Reason For Visit: SPLENIC HEMORRHAGE Diagnosis Discharge Diagnosis (1) Abdominal pain: Status: Acute Code(s): R10.9 - Unspecified abdominal pain (2) Liver mass: Status: Acute Code(s): R16.0 - Hepatomegaly, not elsewhere classified (3) Hypertension: Status: Chronic Code(s): I10 - Essential (primary) hypertension Medications at Discharge Home Medications NK 07/27/24 Hospital Course Operations None Procedures - (Chest x-ray, CT abdomen pelvis) Summary of Care Provided Minutes Spent on Discharge: 35 Hospital Course: Patient is a 43-year-old male who presented [facility] on 07/27/2024 with abdominal pain. Short hospital course here as noted below. Patient was transferred to [facility] on 07/29 for further management. 1. Abdominal pain with newly diagnosed liver masses and splenic hemorrhage ? CT abdomen pelvis on admit showed low-density masses in the liver with the largest measuring 4.6 x 4.2 x 5.5 cm suspicious for metastatic disease, as well as dense fluid surrounding the spleen possibly representing hemorrhage; notably no obvious splenic laceration was identified. Chest x-ray was unremarkable. LFTs with T. bili 1.40, otherwise normal. No other significant lab abnormalities. Given these findings, decision was made to transfer patient to [facility] for further management. Transferred on 07/29 in stable condition. 2. Hypokalemia ? Potassium 3.3 on admit. Mag and Phos normal. Repleted as needed. 3. Hypertension ? Has known history but not currently on any home antihypertensives. Blood pressure consistently running in the 140s to 150s during hospitalization. 4. Class I obesity ? BMI 32 on admit. Complicated hospital course, care and prognosis. Total clinical time spent by myself addressing the patient's medical issues, reviewing all the data, and collaborating with patient's care team: 35 minutes. Physical Exam Const alert, oriented x3 and no apparent distress General Appearance: cooperative and comfortable HEENT normocephalic, head/scalp atraumatic, hearing grossly normal bilaterally, nasal mucous membranes and turbinates normal and moist oral mucous membranes Eyes PERRL, EOMs intact bilaterally and conjunctivae normal Neck full ROM Chest inspection of chest normal Resp normal respiratory effort, normal air movement, no use of accessory muscles and clear to auscultation bilaterally Cardio regular rate, regular rhythm, no murmurs and peripheral pulses 2+ throughout GI normal to inspection, nondistended, normoactive bowel sounds, soft to palpation and non-distended GI Narrative: Abdomen mildly tender diffusely to palpation, otherwise soft and nondistended. Back/Spine normal ROM Extremity normal to inspection, full ROM and no pedal edema Skin no rashes or lesions noted Psych mental status grossly normal Weight / BMI Weight Weight: 93.043 kg Body Mass Index (BMI) 32.1 ABG / Lab / Microbiology Data 07/29/24 06:00 07/29/24 06:00 Laboratory: Laboratory Results - last 24 hr 07/29/24 06:00: WBC 6.1, RBC 4.42 L, Hgb 12.5 L, Hct 37.7 L, MCV 85.3, MCH 28.3, MCHC 33.2, RDW Std Deviation 39.3, RDW Coeff of Viviana 12.7, Plt Count 234, MPV 9.6, Immature Gran % (Auto) 0.300, Neut % (Auto) 54.5, Lymph % (Auto) 29.2, [place] % (Auto) 9.5, Eos % (Auto) 5.7 H, Baso % (Auto) 0.8, Absolute Neuts (auto) 3.3, Absolute Lymphs (auto) 1.79, Nucleated RBC % 0, Sodium 140, Potassium 3.3 L, Chloride 108 H, Carbon Dioxide 27.0, Anion Gap 6, BUN 12, Creatinine 0.94, Estim Creat Clear Calc 107.91, Est GFR (MDRD) Af Amer 111, Est GFR (MDRD) Non-Af 92, BUN/Creatinine Ratio 12.7, Glucose 109 H, Calcium 9.0 D/C Instructions DC O2, CPAP, BIPAP Needs Additional Home O2 Discharge instructions: No DC home with Oxygen: No Meaningful Use Info Meaningful Use Meaningful Use Diagnoses (Choose all that apply): None applicable Ischemic Stroke Statin Dosing Therapy Reference: STATIN DOSE THERAPY REFERENCE: * Patients > 75 years receive moderate or high dose statin therapy. * Patients 75 years or YOUNGER should receive HIGH intensity statin dose unless contraindicated. You will be required to document reason for non-treatment if statin daily dose does not meet guidelines. HIGH DOSE STATIN THERAPY DAILY Atorvastatin > than or = to 40 mg Rosuvastatin > than or = to 20 mg Amlodipine + Atorvastatin > than or = to 2.5/40 mg Ezetimibe + Simvastatin 10/80 mg Simvastatin 80mg Discharge Plan Admission Admit Date/Time: 07/27/24 13:35 Primary Reason for Your Visit: abdominal pain Attending Provider: Den Mcfarland Primary Care Provider: Ana Farias Consulting Providers: Angel Salazar Discharge Orders/Prescriptions Prescriptions: No Action NK Referrals / Follow Up: Ana Farias MD [Primary Care Provider] - Disposition Disposition (needs filled in before D/C Order can be placed): Acute Care Hospital Charges/Coding Visit Charges Inpatient E&M: 68094 Disch Hosp >30min
[2024-07-29 20:29] VITALS: BP 151/95; PULSE 89; RESP 16; TEMP 36.4; O2SAT 96
== END 2024-07-29 22:47 | disposition short-term general hospital (02) | DRG 437 ==
LOC: ED 07-27 01:02 → PCU 07-27 17:02
PROVIDERS: Admitting Provider Internal Medicine; Emergency Provider Emergency Medicine; PCP Family Medicine; Referring Provider Emergency Medicine; Visit Provider Hospitalist
DX: C22.9 Malignant neoplasm of liver, not specified as primary or secondary (principal); D73.5 Infarction of spleen; I10 Essential (primary) hypertension; Z68.32 Body mass index [BMI] 32.0-32.9, adult; E87.6 Hypokalemia; R16.0 Hepatomegaly, not elsewhere classified; E66.811 Obesity, class 1; Z23 Encounter for immunization
CPT/HCPCS: 36415; 71045; 74177; 80048; 80053; 81001; 83605; 83690; 83735; 84100; 85025; 90656; 99284; J7030; Q9967; A4216; J2405

== ENCOUNTER → 2024-08-11 | Outpatient (CLI) | payer OTHER, SELFPAY ==
[2024-08-11 15:53] LABS: ALB/GLOB Ratio 0.8 RATIO (0.9-2.4); AST(SGOT) 26 U/L (15-37); Alanine Aminotransfer ALT/SGPT 33 U/L (16-61); Albumin, Serum 3.8 g/dL (3.2-5.0); Alkaline Phosphatase 83 U/L (45-117); Anion Gap 6 (5-15); BUN 16 mg/dL (7-18); BUN/Creat Ratio 16.6 RATIO (10-20); Chloride 102 mmol/L (98-107); Creatinine, Serum 0.96 mg/dL (0.70-1.30); EST Glomerular Filtration Rate 89 mL/min (>60); Est Glom Filt Rate - Afr Amer 108 mL/min (>60); Globulin 4.5 g/dL (2.2-4.2); Glucose 96 mg/dL (74-106); Potassium 3.5 mmol/L (3.5-5.1); Protein, Total 8.3 g/dL (6.4-8.2); Sodium Level 138 mmol/L (136-145)
[2024-08-13 08:07] LABS: GGTP 32 IU/L (0-65)
== END | disposition home or self-care (01) ==
LOC: MTLAB 12:56
PROVIDERS: PCP Family Medicine; Referring Provider Family Medicine; Visit Provider Family Medicine
DX: C22.0 Liver cell carcinoma (principal); E87.6 Hypokalemia
CPT/HCPCS: 36415; 80053; 82105; 82977

== ENCOUNTER 2025-06-03 14:52 | Emergency (ER) | payer OTHER, SELFPAY ==
[2025-06-03 14:53] VITALS: BP 130/88; PULSE 100; RESP 16; TEMP 36.6; O2SAT 99; BMI 27.8
--- NOTE | 2025-06-03 15:21 | EDS_ITS ---
HPI History of Present Illness Chief Complaint: Dental Informant: patient Onset/Context/Timing Onset: Days (3) Context: Gradual Onset Timing: Continuous Quality: Aching Location: Left lower molars Worsened by: Opening his jaw, drinking, eating Associated Symptoms Assocated Symptom - Dental: jaw swelling and face swelling; Negative for fever, cold sensitivity or hot sensitivity Narrative Narrative: Patient presents with pain in his left jaw that has been getting worse over the past 3 days. Patient saw his primary care physician who prescribed clindamycin. Patient states he has been taking this with no improvement. Patient describes the pain as aching. Patient states it is worse whenever he opens his jaw, eats, or drinks. Patient denies any fevers or chills. Patient denies any sensitivity to hot or cold. Patient states his pain radiates into his left ear. Patient denies any chest pain or shortness of breath. [facility] Medical History Hypertension Home Medications ?Medication ?Instructions ?Recorded ?Last Taken ?Type amoxicillin 875 mg-potassium 875 mg PO Q12H #20 TABLET S 06/03/25 Unknown Rx clavulanate 125 mg tablet Allergy/AdvReac Type Severity Reaction Status Date / Time No Known Allergies Allergy Verified 06/03/25 14:56 Social History Smoking Status: Never smoker ROS ROS ED Constitutional Constitutional ED: Denies chills or fever(s) Eyes Eyes: Denies blurry vision or change in vision ENT ENT ED: Reports ear pain left and sore throat; Denies rhinorrhea Cardiovascular Cardiovascular: Denies chest pain or palpitations Respiratory/Chest Respiratory/Chest: Denies cough or dyspnea Gastrointestinal Gastrointestinal: Denies nausea or vomiting Genitourinary Genitourinary ED: Denies dysuria or hematuria Musculoskeletal Musculoskeletal: Denies back pain or neck pain Integumentary Denies abscess or rash Neurologic Neurologic: Denies headache(s) or weakness Allergic/Immunologic Allergic/Immunologic ED: Denies mouth swelling or urticaria EXAM Physical Exam Const Vital Signs: 06/03/25 14:53 06/03/25 18:53 06/03/25 19:14 Temperature 98 F 98 F Temperature Source Temporal Pulse Rate 100 74 95 Respiratory Rate 16 16 18 Blood Pressure 130/88 H 122/88 H 157/85 H Blood Pressure Mean 102 99 109 Pulse Ox 99 99 98 Oxygen Delivery Method Room Air Positive well nourished and well developed General Appearance ED: well developed and NAD HEENT HEENT Narrative: There is a dental carry noted within the left lower second molar. There is ten derness over this tooth. There is some mild trismus noted on the left. There is some edema over the left mandible. There is no fluctuance or evidence of any abscess. There is no sublingual edema or evidence of Ladarius's angina. Oropharynx is clear. Airway is patent. Mouth ED: Yes oral and palatal mucosa normal and Yes tongue normal Mouth: oral and palatal mucosa normal and tongue normal Teeth and Gingiva: caries and gingiva abnormal Positive for gingival edema Throat: posterior oropharynx normal Neck supple and no JVD General: Negative for anterior neck swelling, tenderness or submandibular swelling Resp normal respiratory effort and clear to auscultation bilaterally Cardio regular rate and regular rhythm Neuro oriented x3, CN's II-XII intact bilaterally, moves all extremities, no focal motor deficits and no sensory deficits noted Sensorium / Orientation: alert Motor Exam: strength 5/5 throughout Psych mental status grossly normal MDM MDM MDM Narrative Medical decision making narrative: Differential diagnosis includes Ladarius's angina, submandibular abscess, sialoadenitis, sialolithiasis, parapharyngeal abscess, and electrolyte abnormality. CBC will be obtained to assess for leukocytosis and anemia. Basic metabolic profile will be obtained to assess for electrolyte abnormality and renal function. CT scan of the soft tissue neck will be obtained to assess for parapharyngeal abscess, sialoadenitis, sialolithiasis, and Ladarius's angina. Lab Data Attestation: I reviewed the patient's lab results. Lab results narrative: CBC was reviewed. There is mild anemia with a hemoglobin of 8.2 and hematocrit of 27.0. Platelets are slightly low at 109. White blood cell count was slightly low at 4.2. Labs: Laboratory Results - last 24 hr 06/03/25 15:29 WBC 4.2 L RBC 3.22 L Hgb 8.2 L Hct 27.0 L MCV 83.9 MCH 25.5 L MCHC 30.4 L RDW Std Deviation 46.3 H RDW Coeff of Viviana 15.2 H Plt Count 109 L MPV 9.1 Immature Gran % (Auto) 0.500 Neut % (Auto) 68.0 Lymph % (Auto) 18.1 L [place] % (Auto) 8.6 Eos % (Auto) 3.8 Baso % (Auto) 1.0 Absolute Neuts (auto) 2.9 Absolute Lymphs (auto) 0.76 L Nucleated RBC % 0 Sodium 137 Potassium 3.4 Chloride 100 Carbon Dioxide 26.2 Anion Gap 10 BUN 13 Creatinine 0.90 Estim Creat Clear Calc 104.38 Est GFR (MDRD) Non-Af 107 BUN/Creatinine Ratio 14.9 Glucose 116 H Calcium 8.7 Radiography Diagnostic Testing: Clinical Impression(s) from Imaging Studies Soft Tissue Neck CT 06/03/25 15:35 IMPRESSION: Impacted left 2nd mandibular molar with adjacent apicitis and likely early periosteal abscess. Left tonsillitis without peritonsillar abscess. Reading Location: [facility] CT scan of the soft tissue neck was obtained. There is an impacted left second molar with apicitis and early periosteal abscess. There is left tonsillitis but no peritonsillar abscess. This was interpreted by the radiologist and was also independently reviewed by myself. Treatment and Re-Evaluation Narrative: Patient was given a dose of Unasyn here. Patient was given a dose of morphine. Patient was feeling better on reevaluation. Patient was advised of his findings. Patient was instructed to stop taking clindamycin. Patient was given a prescription for Augmentin. Patient was also given a prescription for a short course of [place] for pain. Patient was instructed to follow-up with a dentist in 3 to 5 days. Patient was instructed to return if worse in any way. Patient understood and was agreeable with the plan. All questions were answered. Discharge Plan Triage Chief Complaint: Dental ED Provider: Carlin Krishna Dx/Rx/DC Orders Clinical Impression: Dental infection, Hypertension Instructions: ED Dental Pain, ED Dental Abscess Prescriptions: New amoxicillin-pot clavulanate 875-125 mg tablet 875 mg PO Q12H Qty: 20 0RF Primary Care Provider: Ana Farias Referrals: Ana Farias MD [Primary Care Provider, Family Practice] - 5-7 Days Print Language: Mauritian Disposition Disposition: Home, Self Care Discharge Date/Time: 06/03/25 19:21
--- NOTE | 2025-06-03 15:35 | CT_ITS ---
PROCEDURE: SOFT TISSUE NECK WITH CONTRAST 06/03/2025 REASON FOR EXAM: DYSPHAGIA Soft tissue swelling TECHNIQUE: Procedure Code: CTNEW Modality: CT Procedure: SOFT TISSUE NECK WITH CONTRAST CONTRAST: Isovue 300 VOLUME: 75 mL One or more dose reduction techniques were used (e.g., Automated exposure control, adjustment of the mA and/or kV according to patient size, use of iterative reconstruction technique). RADIATION DOSE SUMMARY: CTDlvol: 14 mGy DLP: 384 mGycm COMPARISON: None FINDINGS: Nasopharynx: Negative. Oral cavity and oropharynx: There is lucency adjacent to an impacted left 2nd mandibular molar with minimal periosteal thickening adjacent1 to this best seen on the axial and coronal images. Adjacent soft tissue swelling. No evidence of inflammation extending into the floor of the mouth. Negative for Ladarius's angina. Tongue negative. Hypopharynx and larynx: Mildly prominent palatine tonsils without distinct abscess. Parapharyngeal and retropharyngeal spaces: Negative. Salivary glands: Parotid and subareolar glands negative. Lymph nodes: There are scattered cervical lymph nodes not definitively pathologically enlarged largest in the left submandibular space. Thyroid: Negative. Vasculature: Negative for Orbits: Negative Paranasal sinuses and mastoids: Negative Lung apices: Negative Upper mediastinum: Negative Bones: Remainder bones negative. CT/Soft Tissue Neck WITH Contrast IMPRESSION: Impacted left 2nd mandibular molar with adjacent apicitis and likely early sydnee osteal abscess. Left tonsillitis without peritonsillar abscess. Reading Location: [id number]
[2025-06-03 15:54] LABS: Hematocrit 27.0 % (40-54); Hemoglobin 8.2 g/dL (13.0-16.5); Immature Granulocytes Count 0.020 X10^3/uL (0.0-0.0); Mean Corp Hgb Conc 30.4 g/dL (32-36); Mean Corpuscular Volume 83.9 fL (80-94); Mean Platelet Vol. 9.1 fl (6.2-12.0); NRBC Flagged by Analyzer 0 % (0-5); Platelet Count 109 K/mm3 (150-450); RBC Distribution Width CV 15.2 % (11.6-14.6); RBC Distribution Width SD 46.3 fl (35.1-43.9); Red Blood Count 3.22 M/mm3 (4.6-6.2); White Blood Count 4.2 K/mm3 (4.4-11.0)
[2025-06-03] MEDS: Ampicillin/Sulbactam 3 GM in 0.9% Normal Saline (100mL MB+) 100 ML IV (16:13)
[2025-06-03 16:29] LABS: Anion Gap 10 (5-15); BUN 13 mg/dL (4-19); BUN/Creat Ratio 14.9 RATIO (10-20); Calcium,Total 8.7 mg/dL (7.6-11.0); Carbon Dioxide 26.2 mmol/L (21.0-32.0); Chloride 100 mmol/L (98-108); Estimated Creatinine Clearance 104.38 ml/min (50-250); Glucose 116 mg/dL (70-99); Potassium 3.4 mmol/L (3.3-5.1)
[2025-06-03 18:53] VITALS: BP 122/88; PULSE 74; RESP 16; O2SAT 99
[2025-06-03 19:14] VITALS: BP 157/85; PULSE 95; RESP 18; TEMP 36.6; O2SAT 98
== END 2025-06-03 19:21 | disposition home or self-care (01) ==
PROVIDERS: Emergency Provider Emergency Medicine; PCP Family Medicine; Visit Provider Emergency Medicine
DX: K04.7 Periapical abscess without sinus (principal); I10 Essential (primary) hypertension
CPT/HCPCS: 70491; 80048; 85025; 96365; 96366; 96375; 99283; Q9967; A4216; J0295